=== PATIENT | male | born 1940 | race Caucasian/White ===

== ENCOUNTER 2017-02-24 10:28 | Emergency (ER) | payer MEDICARE, OTHER ==
[2017-02-24 12:08] LABS: BASOPHILS 0.2 % (0-2); EOSINOPHILS 0 % (0-7); HEMATOCRIT 37.2 % (42.0-54.0); HEMOGLOBIN 12.5 g/dL (13.5-17.5); IMMATURE GRANULOCYTES 0.3 % (0-5); MCH 32.7 pg (26.0-34.0); MCHC 33.6 g/dL (31.0-37.0); MCV 97.4 fL (80.0-100.0); MEAN PLATELET VOLUME 9.4 fL (7.4-10.4); MONOCYTES 12.4 % (2-11); NEUTROPHILS 77.1 % (40-80); PLATELET COUNT 191 10x3/uL (130-400); RBC 3.82 10x6/uL (4.20-6.10); RDW 12.8 % (11.5-14.5); WBC 11.4 10x3/uL (4.8-10.8)
[2017-02-24 12:20] LABS: ALBUMIN 3.3 g/dL (3.4-5.0); BILIRUBIN - TOTAL 0.75 mg/dL (0.2-1.3); CALCIUM 9.7 mg/dL (8.5-10.1); CARBON DIOXIDE 31.4 mmol/L (21.0-32.0); CREATININE - SERUM 1.4 mg/dL (0.6-1.3); POTASSIUM - SERUM 3.4 mmol/L (3.5-5.1); PROTEIN - SERUM 7.9 g/dL (6.4-8.2); URIC ACID 6.4 mg/dL (2.6-7.2)
[2017-02-24 13:39] LABS: APPEARANCE CLOUDY (CLEAR); BILIRUBIN NEGATIVE (NEGATIVE); COLOR DK YELLOW (YELLOW); GLUCOSE NEGATIVE (NEGATIVE); KETONE NEGATIVE (NEGATIVE); NITRITE NEGATIVE (NEGATIVE); PROTEIN TRACE mg/dL (NEGATIVE); SPECIFIC GRAVITY 1.025 (1.005-1.020); UROBILINOGEN NORMAL (NORMAL)
[2017-02-24 13:40] LABS: BACTERIA MODERATE /hpf (NONE SEEN); MUCUS <1+ /lpf (NONE SEEN); RED CELLS - URINE 0-5 /hpf (0-5); WHITE CELLS - URINE OCC /hpf (0-5)
== END 2017-02-24 13:31 | disposition home or self-care (01) ==
LOC: D.ER 10:28
PROVIDERS: Physician Assistant Medical
DX: M10.9 Gout, unspecified (principal)

== ENCOUNTER → 2017-04-07 13:42 | Outpatient (CLI) | payer MEDICARE, OTHER | END | disposition home or self-care (01) | LOC: D.US 13:42 | DX: G45.9 Transient cerebral ischemic attack, unspecified (principal) ==

== ENCOUNTER → 2017-07-06 12:42 | Outpatient (CLI) | payer MEDICARE, OTHER | END | disposition home or self-care (01) | LOC: D.MRI 12:42 | DX: M54.16 Radiculopathy, lumbar region (principal) ==

== ENCOUNTER 2019-12-02 16:51 | Inpatient (IN) | payer MEDICARE, OTHER ==
[~2019-12-02] VITALS: Ht 177.8 cm; Wt 90.7 kg
--- NOTE | ~2019-12-02 | EC ---
PATIENT:YEMI LUCAS DATE OF SERVICE: 12/02/19 SEX: M MEDICAL RECORD: [id number] DATE OF : 40 LOCATION:D.M2 D.210 AGE OF PATIENT: 79 ADMISSION DATE: 12/02/19 REFERRING PHYSICIAN: INTERPRETING PHYSICIAN: AZAR RAYMUNDO MD ECHOCARDIOGRAM REPORT ECHO CHARGES 4 ECHO COMPLETE Date: 12/03/19 CLINICAL DIAGNOSIS: HYPOTENSION ECHOCARDIOGRAPHIC MEASUREMENTS (adult normal given) AC root (d.<3.7cm) 3.3 cm LV Septum d (<1.2 cm> 0.9 cm Valve Excursion 1.7 cm LV Septum (systole) 1.4 cm Left Atria (s.<4.0cm> 3.9 cm LVPW d(<1.2cm) 1.1 cm RV (d.<2.3cm) 3.9 cm LVPW (sytole) 1.3 cm LV diastole(<5.6CM) 5.3 cm MV E-F(>70mm/sec) cm LV systole 4.0 cm LVOT Diameter 1.9 cm MV exc.(>10mm) cm Est.ejection fraction (50-75%) % DOPPLER: LVIT cm/sec A 107 cm/sec E 89 cm/sec LA cm/sec RVSP 36 mmHg LVOT 138 cm/sec AOP1/2T m/s Asc. Ao 157 cm/sec RVOT 76 cm/sec RA cm/sec PA 79 cm/sec AV Gradient Peak 9.8 mmHg AV Mean 5.1 mmHg AV Area 2.5 cm MV Gradient Peak 7.1 mmHg MV Mean 4.4 mmHg MV Area cm COMMENTS: Software Engineering Associate Manager: My CHRISTIANSON Pool Cleaner: My Raymundo TAPE# PACS Pericardial Effusion N DATE OF SERVICE: CLINICAL INDICATION: Hypotension. FINDINGS: Left ventricle - normal left ventricular chamber size and contractile function, ejection fraction 55% to 60%. Left atrial chamber appears normal. Right atrial and right ventricular chamber size and function appears normal. Aortic valve appears normal. No aortic regurgitation/stenosis. Mitral valve appears normal. No regurgitation/stenosis. Tricuspid valve appears normal. No regurgitation/stenosis. Pulmonic valve appears normal. No ECHOCARDIOGRAM REPORT [id number] YEMI LUCAS regurgitation/stenosis. No pericardial effusion visualized. IMPRESSION: Normal left ventricular chamber size and contractile function, ejection fraction of 55% to 60%. TRANSINT:[id number] Voice Confirmation ID: [id number] DOCUMENT ID: [id number] AZAR RAYMUNDO MD CC: [id number] DICTATION DATE: 12/03/19 1328 LINING SEWER: 12/03/19 1658 ADM IN [place] [id number] [place] [id number]
[2019-12-02] MEDS ORDERED: OMEPRAZOLE20 M1 PO (17:04)
[2019-12-02] MEDS ORDERED: ZYLOPRIM300 MG PO (17:04)
[2019-12-02] MEDS ORDERED: ZOCOR40 MG PO (17:04)
[2019-12-02] MEDS ORDERED: LISINOPRIL20 MG PO (17:04)
[2019-12-02] MEDS ORDERED: KLOR-CON 1010 MEQ PO (17:05)
[2019-12-02 18:28] LABS: BASOPHILS 0.5 % (0-2); EOSINOPHILS 2.8 % (0-7); HEMATOCRIT 37.4 % (42.0-54.0); HEMOGLOBIN 12.6 g/dL (13.5-17.5); IMMATURE GRANULOCYTES 0.3 % (0-5); LYMPHOCYTES 12.4 % (15-50); MCH 33.2 pg (26.0-34.0); MCHC 33.7 g/dL (31.0-37.0); MCV 98.7 fL (80.0-100.0); MEAN PLATELET VOLUME 10.5 fL (7.4-10.4); MONOCYTES 10.2 % (2-11); NEUTROPHILS 73.8 % (40-80); PLATELET COUNT 186 10x3/uL (130-400); RBC 3.79 10x6/uL (4.20-6.10); RDW 13.6 % (11.5-14.5); WBC 7.4 10x3/uL (4.8-10.8)
[2019-12-02 18:34] LABS: APTT 30.4 SECONDS (22.8-39.4); CALC OSMOLALITY 311 mosm/kg (275-300); CALCIUM 8.4 mg/dL (8.5-10.1); CARBON DIOXIDE 13.4 mmol/L (21.0-32.0); CHLORIDE - SERUM 107 mmol/L (98-107); CREATININE - SERUM 6.7 mg/dL (0.6-1.3); GLUCOSE 104 mg/dL (74-106); INR 1.04 (0.85-1.17); POTASSIUM - SERUM 3.3 mmol/L (3.5-5.1); PROTIME 13.5 SECONDS (11.6-15.0); SODIUM 137 mmol/L (136-145); eGFR NON AFRICAN AMERICAN 8 mL/min (90-120)
[2019-12-02 18:44] LABS: UREA NITROGEN 118 mg/dL (7-18)
[2019-12-02 18:58] LABS: ALBUMIN 3.1 g/dL (3.4-5.0); ALKALINE PHOSPHATASE 66 U/L (30-120); ALT (SGPT) 13 U/L (10-68); BILIRUBIN - TOTAL 0.43 mg/dL (0.2-1.3); CKMB 1.9 U/L (0.0-3.6); CREATINE KINASE 76 UL (21-232); PROTEIN - SERUM 7.5 g/dL (6.4-8.2)
[2019-12-02 18:59] LABS: TROPONIN-I 0.017 ng/mL (0.000-0.060)
--- NOTE | 2019-12-02 20:00 | NUR ---
REPORT GIVEN TO PRESTON DE LA FUENTE
--- NOTE | 2019-12-02 20:36 | NUR ---
URINE COLLECTED AND SENT TO LAB
[2019-12-02 20:39] VITALS: BP 109/50
[2019-12-02 20:42] LABS: BILIRUBIN NEGATIVE (NEGATIVE); KETONE NEGATIVE (NEGATIVE); NITRITE NEGATIVE (NEGATIVE); UROBILINOGEN NORMAL mg/dL (< 2)
--- NOTE | 2019-12-02 22:45 | NUR ---
COVID SWAB TO LAB
[2019-12-02 23:01] VITALS: BP 116/59
[2019-12-03] VITALS (8 sets, daily range): BP systolic 95–128; BP diastolic 46–69; BMI 28.7
[2019-12-03 01:11] LABS: CKMB 1.8 U/L (0.0-3.6); CREATINE KINASE 75 UL (21-232); TROPONIN-I < 0.017 ng/mL (0.000-0.060)
--- NOTE | 2019-12-03 03:30 | NUR ---
PT ABLE TO WALK TO BATHROOM DENIES NEEDS.
[2019-12-03 05:01] LABS: BASOPHILS 0.4 % (0-2); EOSINOPHILS 2.4 % (0-7); HEMOGLOBIN 12.7 g/dL (13.5-17.5); IMMATURE GRANULOCYTES 0.1 % (0-5); LYMPHOCYTES 12.5 % (15-50); MCH 33.8 pg (26.0-34.0); MCHC 34.3 g/dL (31.0-37.0); MCV 98.4 fL (80.0-100.0); MEAN PLATELET VOLUME 10.4 fL (7.4-10.4); MONOCYTES 12.2 % (2-11); NEUTROPHILS 72.4 % (40-80); PLATELET COUNT 173 10x3/uL (130-400); RBC 3.76 10x6/uL (4.20-6.10); RDW 13.6 % (11.5-14.5); WBC 6.7 10x3/uL (4.8-10.8)
[2019-12-03 05:13] LABS: ANION GAP 19.5 mmol/L (8-16); BILIRUBIN - TOTAL 0.45 mg/dL (0.2-1.3); CALCIUM 8.3 mg/dL (8.5-10.1); CARBON DIOXIDE 13.8 mmol/L (21.0-32.0); CREATININE - SERUM 5.4 mg/dL (0.6-1.3); MAGNESIUM - SERUM 1.5 mg/dL (1.8-2.4); POTASSIUM - SERUM 3.3 mmol/L (3.5-5.1); PROTEIN - SERUM 6.9 g/dL (6.4-8.2)
[2019-12-03 06:53] LABS: CKMB 1.7 U/L (0.0-3.6); CREATINE KINASE 78 UL (21-232); TROPONIN-I 0.021 ng/mL (0.000-0.060)
--- NOTE | 2019-12-03 10:54 | NUR ---
ASSIST PT UP TO RESTROOM. SOB WITH MINIMAL EXERTION. BACK TO BED WITHOUT INCODENT.
--- NOTE | 2019-12-03 13:23 | NUR ---
PT AMBULATES TO BR WITHOUT ASSIST. GAIT STEADY. ASSISTED BTB. VSS. DENIES FURTHER NEEDS AT THIS TIME.
[2019-12-03 13:36] LABS: CKMB 2.1 U/L (0.0-3.6); CREATINE KINASE 100 UL (21-232); MAGNESIUM - SERUM 1.5 mg/dL (1.8-2.4); TROPONIN-I 0.019 ng/mL (0.000-0.060)
--- NOTE | 2019-12-03 15:17 | NUR ---
received patient from er via wheelchair. patient denies pain at this time. no sob, or chest pain. patient reminded of call light and all of unit protocols. patient's is emergency contact. patient ambulates well with little assistance.
[2019-12-04 04:30] VITALS: BP 118/68
--- NOTE | 2019-12-04 07:20 | NUR ---
RECIEVE REPORT. ALERT AND ORIENTED X4. RESTING IN BED. DENIES ANY NEEDS. CONTINUE PLAN OF CARE AND SAFETY PRECAUTIONS.
[2019-12-04 07:27] LABS: EOSINOPHILS 3.2 % (0-7); HEMATOCRIT 34.3 % (42.0-54.0); HEMOGLOBIN 11.6 g/dL (13.5-17.5); IMMATURE GRANULOCYTES 0.2 % (0-5); LYMPHOCYTES 23.3 % (15-50); MCH 32.9 pg (26.0-34.0); MCHC 33.8 g/dL (31.0-37.0); MCV 97.2 fL (80.0-100.0); MEAN PLATELET VOLUME 10.6 fL (7.4-10.4); MONOCYTES 18.9 % (2-11); NEUTROPHILS 53.4 % (40-80); PLATELET COUNT 199 10x3/uL (130-400); RBC 3.53 10x6/uL (4.20-6.10); RDW 13.7 % (11.5-14.5); WBC 5.1 10x3/uL (4.8-10.8)
[2019-12-04 07:28] LABS: ALBUMIN 2.8 g/dL (3.4-5.0); BILIRUBIN - TOTAL 0.41 mg/dL (0.2-1.3); CALCIUM 7.9 mg/dL (8.5-10.1); CARBON DIOXIDE 11.9 mmol/L (21.0-32.0); MAGNESIUM - SERUM 1.2 mg/dL (1.8-2.4); POTASSIUM - SERUM 3.4 mmol/L (3.5-5.1); PROTEIN - SERUM 6.2 g/dL (6.4-8.2)
[2019-12-04 07:30] LABS: CREATININE - SERUM 2.7 mg/dL (0.6-1.3)
[2019-12-04 07:34] LABS: ANION GAP 20.5 mmol/L (8-16)
[2019-12-04 08:32] VITALS: BP 143/85
[2019-12-04 12:40] VITALS: BP 142/75
[2019-12-04 16:13] VITALS: BP 170/68
--- NOTE | 2019-12-04 20:30 | NUR ---
RECEIVED REPORT, WILL ASSUME CARE OF PT, UP TO RESTROOM, DENIES ANY NEEDS AT THIS TIME, WILL CONTINUE PLAN OF CARE
[2019-12-04 20:46] VITALS: BP 137/75
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
[2019-12-05 01:31] VITALS: BP 150/85
--- NOTE | 2019-12-05 01:37 | NUR ---
I have reviewed this patient and I concur with the Shift Assessment completed by the Licensed Practical Nurse today this shift.
[2019-12-05 05:41] VITALS: BP 131/74
[2019-12-05 06:56] LABS: BASOPHILS 0.6 % (0-2); HEMATOCRIT 32.1 % (42.0-54.0); HEMOGLOBIN 10.8 g/dL (13.5-17.5); IMMATURE GRANULOCYTES 0.2 % (0-5); LYMPHOCYTES 23.3 % (15-50); MCH 32.1 pg (26.0-34.0); MCHC 33.6 g/dL (31.0-37.0); MCV 95.5 fL (80.0-100.0); MEAN PLATELET VOLUME 10.2 fL (7.4-10.4); MONOCYTES 13.4 % (2-11); NEUTROPHILS 58.5 % (40-80); PLATELET COUNT 177 10x3/uL (130-400); RBC 3.36 10x6/uL (4.20-6.10); RDW 13.7 % (11.5-14.5); WBC 5.2 10x3/uL (4.8-10.8)
--- NOTE | 2019-12-05 07:20 | NUR ---
RECIEVE REPORT. ALERT AND ORIENTED X4. RESTING IN BED. DENIES ANY NEEDS. CONTINUE PLAN OF CARE AND SAFETY PRECAUTIONS.
[2019-12-05 07:31] LABS: ALBUMIN 2.4 g/dL (3.4-5.0); BILIRUBIN - TOTAL 0.44 mg/dL (0.2-1.3); CALCIUM 7.7 mg/dL (8.5-10.1); MAGNESIUM - SERUM 1.3 mg/dL (1.8-2.4); URIC ACID 3.6 mg/dL (2.6-7.2)
[2019-12-05 07:35] LABS: CREATININE - SERUM 1.6 mg/dL (0.6-1.3)
[2019-12-05 07:36] LABS: ANION GAP 12.6 mmol/L (8-16); CARBON DIOXIDE 24.2 mmol/L (21.0-32.0); POTASSIUM - SERUM 2.8 mmol/L (3.5-5.1)
[2019-12-05 08:02] VITALS: BP 144/86
[2019-12-05 11:56] VITALS: BP 129/76
[2019-12-05 12:23] VITALS: Ht 177.8 cm; Wt 90.7 kg
[2019-12-05 17:26] VITALS: BP 122/78
--- NOTE | 2019-12-05 19:36 | NUR ---
OT NOTE: PT COMPLETED BED MOB TASKS WITH SPV-MOD I. PT COMPLETED ADL MOB WITH SPV-MOD I, PT COMPLETED TOILETING TASKS WITH SPV-MOD I. PT EDUCATED TO USE CALL LIGHT. [phone] THANK YOU,DESIREE STERN
[2019-12-05 23:15] VITALS: BP 135/71
[2019-12-06 03:03] VITALS: BP 141/78
[2019-12-06 05:24] LABS: BASOPHILS 1.1 % (0-2); EOSINOPHILS 3.3 % (0-7); HEMATOCRIT 34.7 % (42.0-54.0); HEMOGLOBIN 11.5 g/dL (13.5-17.5); IMMATURE GRANULOCYTES 0.2 % (0-5); LYMPHOCYTES 27.4 % (15-50); MCH 32.3 pg (26.0-34.0); MCHC 33.1 g/dL (31.0-37.0); MEAN PLATELET VOLUME 10.4 fL (7.4-10.4); MONOCYTES 10.2 % (2-11); NEUTROPHILS 57.8 % (40-80); PLATELET COUNT 202 10x3/uL (130-400); RBC 3.56 10x6/uL (4.20-6.10); RDW 13.6 % (11.5-14.5); WBC 6.4 10x3/uL (4.8-10.8)
[2019-12-06 05:27] LABS: MCV 97.5 fL (80.0-100.0)
--- NOTE | 2019-12-06 05:44 | NUR ---
PT GUME 20G IV INFILTATED. SWELLING TO ARM W/O HEAT OR PAIN. WARM COMPRESSES AND ELEVATION APPLIED TO PT'S ARM. PT A/O X4 RR EVEN AND UNLABORED. NO S/S OF DISTRESS AT THIS TIME. PT STATES HE IS GOING HOME TODAY AND REFUSES ANOTHER IV. VITALS STABLE. BED LOW CALL LIGHT WITHIN REACH. WILL CONTINUE TO MONITOR.
[2019-12-06 05:53] LABS: ALBUMIN 2.7 g/dL (3.4-5.0); BILIRUBIN - TOTAL 0.46 mg/dL (0.2-1.3); CALCIUM 8.3 mg/dL (8.5-10.1); CARBON DIOXIDE 22.9 mmol/L (21.0-32.0); CREATININE - SERUM 1.6 mg/dL (0.6-1.3); MAGNESIUM - SERUM 1.6 mg/dL (1.8-2.4); PROTEIN - SERUM 6.7 g/dL (6.4-8.2)
[2019-12-06 05:57] LABS: ANION GAP 11.4 mmol/L (8-16); POTASSIUM - SERUM 3.3 mmol/L (3.5-5.1)
[2019-12-06 06:11] VITALS: BP 129/70
[2019-12-06 07:00] VITALS: BP 138/70
--- NOTE | 2019-12-06 07:20 | NUR ---
RECIEVE REPORT. ALERT AND ORIENTED X4. RESTING IN BED. DENIES ANY NEEDS. REFUSE IV RESITE. FOLLOW ELECTROLYTE PROTOCOL. CONTINUE PLAN OF CARE AND SAFETY PRECAUTIONS.
[2019-12-06] MEDS ORDERED: LOPERAMIDE HCL2 MG PO (09:56)
[2019-12-06] MEDS ORDERED: SODIUM BICARBO650 MG PO (09:56)
--- NOTE | 2019-12-06 14:33 | NUR ---
ALERT AND ORIENTED X4. SITTING UP IN BED. DISCHARGE INSTRUCTIONS GIVEN VERBALLY AND WRITTEN. DISCHARGE PAPERS SIGNED ON CHART. NO IV ACCESS. ESCORT TO RIDE VIA WHEELCHAIR. REMAINS FREE FROM INJURY.
== END 2019-12-06 14:43 | disposition home or self-care (01) | DRG 314 ==
LOC: D.ER 16:51 → D.EDHOLD 19:43 → D.M2 19:43
PROVIDERS: Emergency Medicine; Family Medicine; ADMIT Family Medicine; ATTEND Family Medicine
DX: I95.9 Hypotension, unspecified (principal); N17.0 Acute kidney failure with tubular necrosis; E87.2 Acidosis; E87.0 Hyperosmolality and hypernatremia; I12.9 Hypertensive chronic kidney disease with stage 1 through stage 4 chronic kidney disease, or unspecified chronic kidney disease; E86.0 Dehydration; D63.1 Anemia in chronic kidney disease; E87.6 Hypokalemia; I48.91 Unspecified atrial fibrillation; K21.9 Gastro-esophageal reflux disease without esophagitis; K44.9 Diaphragmatic hernia without obstruction or gangrene; E78.5 Hyperlipidemia, unspecified; N18.30 Chronic kidney disease, stage 3 unspecified; E83.42 Hypomagnesemia; R19.7 Diarrhea, unspecified; M10.9 Gout, unspecified